=== PATIENT | male | born 1990 | race Two or more races ===

== ENCOUNTER 2022-05-10 10:58 | Emergency (ER) | payer OTHER ==
[~2022-05-10] VITALS: Ht 175.3 cm; Wt 86.2 kg
[2022-05-10] MEDS ORDERED: ZITHROMAX500 MG PO (15:03)
[2022-05-10] MEDS ORDERED: CLARITIN-D 121 EACH PO (15:03)
[2022-05-10] MEDS ORDERED: TUSSIN100 MG/51 PO (15:03)
[2022-05-10] MEDS ORDERED: EYE ALLERGY REL15 M1 OP (15:06)
== END 2022-05-10 15:10 | disposition home or self-care (01) ==
LOC: ER 10:58
DX: J06.9 Acute upper respiratory infection, unspecified (principal); R51.9 Headache, unspecified; Z88.0 Allergy status to penicillin; Z20.822 Contact with and (suspected) exposure to COVID-19